=== PATIENT | female | born 1945 | race Caucasian/White ===

== ENCOUNTER 2016-11-22 05:46 | Day surgery (SDC) | payer OTHER ==
[2016-11-21 10:31] VITALS: Ht 157.5 cm; Wt 68.3 kg
[~2016-11-22] VITALS: Ht 157.5 cm; Wt 68.3 kg
[~2016-11-22 05:46] MED LIST: ASPI-664 PO; BP MED; CIPROFLOXACIN 0.3% 2.5 ML OPH OPER SCH; CYCLOPENTOLATE/PHENYLEPH 2 ML OPH OPER SCH; DICLOFENAC 0.1% 2.5 ML OPH OPER SCH; GLIPIZIDE PO; METFORMIN PO; SIMVASTATIN PO; TROPICAMIDE 1% 2 ML OPH OPER SCH
[2016-11-22] MEDS ORDERED: LIDOCAINE 4% (MPF) 5 ML INJ ONE (06:21)
[2016-11-22] MEDS ORDERED: EPINEPHrine 1 MG INJ ONE (06:22)
[2016-11-22] MEDS ORDERED: CEFAZOLIN 1 GM INJ ONE (06:22)
[2016-11-22] MEDS ORDERED: CARBACHOL 0.01% 1.5 ML OPH INJ ONE (06:22)
[2016-11-22] MEDS ORDERED: DEXAMETHASONE 4 MG/ML 1 ML INJ ONE (06:22)
[2016-11-22] MEDS ORDERED: HYALURONATE/CHONDROITIN 1ML OPH INJ ONE (06:23)
[2016-11-22] MEDS ORDERED: DEXAMETHASONE 4 MG/ML 1 ML INJ INJ ONE (07:05)
[2016-11-22] MEDS ORDERED: HYALURONATE/CHONDROITIN 1ML OPH INJ IO ONE (07:05)
[2016-11-22] MEDS ORDERED: CEFAZOLIN 1 GM INJ INJ ONE (07:05)
[2016-11-22] MEDS ORDERED: CARBACHOL 0.01% 1.5 ML OPH INJ RIGHT EYE ONE (07:05)
[2016-11-22 07:23] VITALS: BP 142/66; PULSE 72; RESP 18
[2016-11-22] MEDS ORDERED: FENTAnyl 50 MCG/ML VIAL ONE (07:26)
[2016-11-22] MEDS ORDERED: PROPOFOL 20 ML ONE (07:26)
[2016-11-22] MEDS ORDERED: LISI40TA9 PO (07:33)
[2016-11-22] MEDS ORDERED: HYDR12.58 PO (07:33)
[2016-11-22] MEDS ORDERED: METOCLOPRAMIDE 10 MG INJ IV PRN (08:00)
[2016-11-22] MEDS ORDERED: DIPHENHYDRAMINE 50 MG INJ IV PRN (08:00)
[2016-11-22] MEDS ORDERED: ONDANSETRON 4 MG INJ IV PRN (08:00)
[2016-11-22] MEDS ORDERED: HYDROmorphONE (0.2 MG/ML) 10ML SYG IV PRN ×3 (08:00)
[2016-11-22] MEDS ORDERED: MEPERIDINE 25 MG INJ IV PRN (08:00)
[2016-11-22 08:05] VITALS: BP 136/86; PULSE 69; RESP 16
[2016-11-22 08:07] VITALS: BP 141/72; PULSE 70; RESP 26
[2016-11-22 08:15] VITALS: BP 134/66; PULSE 68; RESP 17
[2016-11-22] MEDS ORDERED: GENTAMICIN 80 MG INJ ONE (08:20)
[2016-11-22 08:35] VITALS: BP 156/71; PULSE 73; RESP 18
--- NOTE | 2016-11-22 09:43 | OPR ---
DATE OF OPERATION: 11/22/2016 PREOPERATIVE DIAGNOSIS: Cataract, right eye. POSTOPERATIVE DIAGNOSIS: Cataract, right eye. OPERATION PERFORMED: Cataract extraction with lens implant, right eye. SURGEON: Al Emery MD ANESTHESIA: Local standby. ANESTHESIOLOGIST: Dr. Rodarte OPERATION: Phacoemulsification with posterior chamber intraocular lens implant, right eye. PROCEDURE: The patient was brought to the operating room and placed on the table with an IV in plac e and the patient attached to an environmental monitoring technician. Oxygen was given via face mask. After some intravenous sedation was administered, local anesthesia was given using Xylocaine 2% with epinephrine, mixed with Marcaine 0.5%. This was given in a lid block and retrobulbar injection. The patient was then prepped and draped in the usual sterile manner. A wire lid speculum was inserted between the lids of the right eye. A Superblade was used to enter t he anterior chamber at the corneoscleral limbus at the 10:30 o'clock position. A separate incision w as made using a 3.0-mm keratome which entered the corneoscleral junction at the 12 o'clock position. Through this 3-mm opening, an irrigating cystitome was introduced into the anterior chamber. The ch elisa was filled with Viscoat and an anterior capsulotomy was performed. Balanced salt solution was then used for hydrodissection of the lens. A phacoemulsification handpiece was then brought into th e field and introduced into the anterior chamber. The lens nucleus was emulsified using a deep groov e and cracking the nucleus into quadrants. Following this, each quadrant was aspirated and emulsifie d at the pupillary margin. After this was completed, the irrigation/aspiration handpiece was brought to the field, introduced i nto the posterior chamber, and the lens cortical material was removed. When this was completed, sri tional Viscoat was injected into the anterior and posterior chambers. The 3-mm opening had its internal lips enlarged, and then the posterior chamber intraocular lens ricky suring 22.0 diopters ([employer] Model LI61AO) was then injected into the posterior chamber using the lens injector system. After the leading haptic was introduced into the capsular b ag and the lens optic was present in the center of the eye, the injector was removed and the trailin g haptic was grasped with non-toothed forceps and introduced into the capsular fold superiorly. A Si nskey hook was then used to rotate the intraocular lens so that the lips were oriented in the horizo ntal meridian. One 10-0 nylon suture was placed across the wound. Prior to tying, the irrigation/aspiration handpiece was reintroduced into the anterior chamber to re move the Viscoat. Miochol was instilled to constrict the pupil, and then the 10-0 nylon suture was t ied. The ends were cut short and then the knot was buried. Then, 0.5 mL of dexamethasone and 0.5 mL of Ancef were injected into the sub-Tenon space in the infe rior fornix. Ciloxan drops were then placed on the surface of the eye. The speculum was removed and a patch was applied. The patient then left the operating room in satisfactory condition. Dictated By: AL PIERRE/SIMBA Conf#: [id number] DID#: [id number]
--- NOTE | 2016-11-22 10:23 | PREOPHP ---
DATE OF ADMISSION: 11/22/2016 HISTORY OF PRESENT ILLNESS: This 71-year-old patient is admitted for elective cataract surgery of t he right eye. The patient has had progressive deterioration of vision in both eyes over the past 2 to 3 years. The patient has an 18 year history of xxz-kjbaspd-jbxbrjchz diabetes mellitus. CURRENT MEDICATIONS INCLUDE: 1. Metformin. 2. Glipizide. 3. Aspirin (discontinued 1 week prior to surgery). ALLERGIES: THERE ARE NO KNOWN ALLERGIES. PHYSICAL EXAMINATION: Visual acuity best corrected is finger counting vision in the right eye and 2 0/200 in the left eye. Slit lamp examination reveals advanced nuclear sclerotic and dense posterior subcapsular cataract changes present in both eyes. Applanation tonometry is 19 mmHg in both eyes. Examination of the retina does not reveal the presence of any obvious diabetic retinopathy; however , the media is hazy due to the advanced cataract in both eyes and therefore it is difficult to ascer tain with certainty whether there is any evidence of diabetic retinopathy. DIAGNOSIS: Cataract, right eye. PLAN: Cataract extraction with lens implant, right eye. The risks and alternatives to the surgery have been discussed with the patient and patient has opted to proceed with surgery in hopes of impro ving visual acuity leading to a greater ability to perform activities of daily living. Dictated By: AL PIERRE/SIMBA Conf#: [id number] DID#: [id number]
== END 2016-11-22 09:26 | disposition home or self-care (01) ==
LOC: SDS 05:46
PROVIDERS: ATTEND Ophthalmology
DX: H25.11 Age-related nuclear cataract, right eye (principal); I10 Essential (primary) hypertension; E11.9 Type 2 diabetes mellitus without complications; E78.5 Hyperlipidemia, unspecified
CPT/HCPCS: 66984; 82962; J0171; J0690; J1100; J1580; J3010; V2632

== ENCOUNTER 2017-02-07 07:00 | Day surgery (SDC) | payer OTHER ==
--- NOTE | 2017-02-06 12:55 | PREOPHP ---
DATE OF ADMISSION: 02/07/2017 HISTORY OF PRESENT ILLNESS: This 71-year-old patient is admitted for elective cataract surgery of t he left eye. Patient has had progressive deterioration of vision over the past 3 years, and 3 month s ago underwent cataract surgery of the right eye. The patient has an 18-year history of non-insuli n-dependent diabetes mellitus. CURRENT MEDICATIONS INCLUDE: 1. Metformin. 2. Glipizide. 3. Aspirin (discontinued 1 week prior to surgery). ALLERGIES: THERE ARE NO KNOWN ALLERGIES. PHYSICAL EXAMINATION: The visual acuity with correction is 20/30 in the right eye and 20/100 in the left eye. Slit lamp examination reveals a posterior chamber intraocular lens in appropriate positi on in the right eye and a nuclear sclerotic and posterior subcapsular cataract in the left eye. Rashad lanation tonometry is 17 mmHg. Examination of the retina does not reveal any evidence of diabetic r etinopathy in the operated eye. In the opposite eye, there is a hazy view and difficult to determin e. DIAGNOSIS: Cataract, left eye. PLAN: Cataract extraction with lens implant, left eye. The risks and alternatives to the surgery h ave been discussed with the patient as well as hope for improvement of visual acuity leading to a gr eater ability to perform activities of daily living. The patient understands this and agrees to pro ceed with surgery. Dictated By: AL PIERRE/SIMBA Conf#: [id number] DID#: [id number]
[2017-02-07] VITALS (9 sets, daily range): BP systolic 94–157; BP diastolic 60–71; PULSE 64–69; RESP 15–24; Ht 154.9 cm; Wt 67.7 kg
[~2017-02-07] VITALS: Ht 154.9 cm; Wt 67.7 kg
[~2017-02-07 07:00] MED LIST changes: -BP MED; -CIPROFLOXACIN 0.3% 2.5 ML OPH OPER SCH; -CYCLOPENTOLATE/PHENYLEPH 2 ML OPH OPER SCH; -DICLOFENAC 0.1% 2.5 ML OPH OPER SCH; +HYDR12.58 PO; +LISI40TA9 PO; -TROPICAMIDE 1% 2 ML OPH OPER SCH
[2017-02-07] MEDS ORDERED: GLIP-95 PO (08:40)
[2017-02-07] MEDS ORDERED: METF850T PO (08:40)
[2017-02-07] MEDS ORDERED: SIMV20TA PO (08:41)
[2017-02-07] MEDS ORDERED: CYCLOPENTOLATE/PHENYLEPH 2 ML OPH OPER SCH (09:00)
[2017-02-07] MEDS ORDERED: TROPICAMIDE 1% 2 ML OPH OPER SCH (09:00)
[2017-02-07] MEDS ORDERED: CIPROFLOXACIN 0.3% 2.5 ML OPH OPER SCH (09:00)
[2017-02-07] MEDS ORDERED: DICLOFENAC 0.1% 2.5 ML OPH OPER SCH (09:00)
[2017-02-07] MEDS ORDERED: CARBACHOL 0.01% 1.5 ML OPH INJ ONE (10:51)
[2017-02-07] MEDS ORDERED: LIDOCAINE 4% (MPF) 5 ML INJ ONE (10:51)
[2017-02-07] MEDS ORDERED: GENTAMICIN 80 MG INJ ONE (10:51)
[2017-02-07] MEDS ORDERED: EPINEPHrine 1 MG INJ ONE (10:51)
[2017-02-07] MEDS ORDERED: CEFAZOLIN 1 GM INJ ONE (10:51)
[2017-02-07] MEDS ORDERED: DEXAMETHASONE 4 MG/ML 1 ML INJ ONE (10:51)
[2017-02-07] MEDS ORDERED: HYALURONATE/CHONDROITIN 1ML OPH INJ ONE (10:51)
[2017-02-07] MEDS ORDERED: DEXAMETHASONE 4 MG/ML 1 ML INJ INJ ONE (11:00)
[2017-02-07] MEDS ORDERED: CARBACHOL 0.01% 1.5 ML OPH INJ IO ONE (11:00)
[2017-02-07] MEDS ORDERED: CEFAZOLIN 1 GM INJ INJ ONE (11:00)
[2017-02-07] MEDS ORDERED: HYALURONATE/CHONDROITIN 1ML OPH INJ IO ONE (11:00)
[2017-02-07] MEDS ORDERED: FENTAnyl 50 MCG/ML VIAL ONE (11:10)
[2017-02-07] MEDS ORDERED: LIDOCAINE 2% (SDV) 5 ML INJ ONE (11:10)
[2017-02-07] MEDS ORDERED: PROPOFOL 20 ML ONE (11:10)
[2017-02-07] MEDS ORDERED: MIDAZOLAM 1 MG/ML 2 ML INJ ONE (11:10)
[2017-02-07] MEDS ORDERED: OXYCODONE/ACETAMINOPHEN (5/325) TAB PO PRN (11:30)
[2017-02-07] MEDS ORDERED: HYDROmorphONE (0.2 MG/ML) 10ML SYG IV PRN (11:30)
[2017-02-07] MEDS ORDERED: FENTAnyl 50 MCG/ML VIAL IV PRN (11:30)
[2017-02-07] MEDS ORDERED: ONDANSETRON 4 MG INJ IV PRN (11:30)
--- NOTE | 2017-02-07 12:42 | OPR ---
DATE OF OPERATION: 02/07/2017 PREOPERATIVE DIAGNOSIS: Cataract, left eye. POSTOPERATIVE DIAGNOSIS: Cataract, left eye. OPERATION PERFORMED: Cataract extraction with lens implant, left eye. SURGEON: Al Emery MD. ANESTHESIA: Dr. Serrano. ANESTHESIA: Local standby. OPERATION: Phacoemulsification with posterior chamber intraocular lens implant, left eye. PROCEDURE: The patient was brought to the operating room and placed on the table with an IV in plac e and the patient attached to an metal numerical tool programmer. Oxygen was given via face mask. After some intravenous sedation was administered, local anesthesia was given using Xylocaine 2% with epinephrine, mixed with Marcaine 0.5%. This was given in a lid block and retrobulbar injection. The patient was then prepped and draped in the usual sterile manner. A wire lid speculum was inserted between the lids of the left eye. A Superblade was used to enter th e anterior chamber at the corneoscleral limbus at the 10:30 o'clock position. A separate incision wa s made using a 3.0-mm keratome which entered the corneoscleral junction at the 12 o'clock position. Through this 3-mm opening, an irrigating cystitome was introduced into the anterior chamber. The warren mber was filled with Viscoat and an anterior capsulotomy was performed. Balanced salt solution was t hen used for hydrodissection of the lens. A phacoemulsification handpiece was then brought into the field and introduced into the anterior chamber. The lens nucleus was emulsified using a deep groove and cracking the nucleus into quadrants. Following this, each quadrant was aspirated and emulsified at the pupillary margin. After this was completed, the irrigation/aspiration handpiece was brought to the field, introduced i nto the posterior chamber, and the lens cortical material was removed. When this was completed, sri tional Viscoat was injected into the anterior and posterior chambers. The 3-mm opening had its internal lips enlarged, and then the posterior chamber intraocular lens ricky suring 23.0 diopter posterior chamber intraocular lens ([employer]ch [employer] model LI61AO)injector system . After the leading haptic was introduced into the capsular bag and the lens optic was present in th e center of the eye, the injector was removed and the trailing haptic was grasped with non-toothed f orceps and introduced into the capsular fold superiorly. A Sinskey hook was then used to rotate the intraocular lens so that the lips were oriented in the horizontal meridian. One 10-0 nylon suture wa s placed across the wound. Prior to tying, the irrigation/aspiration handpiece was reintroduced into the anterior chamber to re move the Viscoat. Miochol was instilled to constrict the pupil, and then the 10-0 nylon suture was t ied. The ends were cut short and then the knot was buried. Then, 0.5 mL of dexamethasone and 0.5 mL of Ancef were injected into the sub-Tenon space in the infe rior fornix. Ciloxan drops were then placed on the surface of the eye. The speculum was removed and a patch was applied. The patient then left the operating room in satisfactory condition. Dictated By: AL PIERRE/SIMBA Conf#: [id number] DID#: [id number]
== END 2017-02-07 13:31 | disposition home or self-care (01) ==
LOC: SDS 07:00
PROVIDERS: ATTEND Ophthalmology
DX: H26.9 Unspecified cataract (principal); I10 Essential (primary) hypertension; E11.9 Type 2 diabetes mellitus without complications; E78.5 Hyperlipidemia, unspecified
CPT/HCPCS: 66984; 82962; J0171; J0690; J1100; J1580; J2250; J3010; V2632